=== PATIENT | female | born 1990 | race American Indian/Alaskan Native ===

== ENCOUNTER 2016-07-25 13:53 | Emergency (ER) | payer SELFPAY ==
--- NOTE | 2016-07-25 16:24 | Emergency Department Report ---
HPI - General Chief Complaint: Urogenital-Female Time Seen by Provider: 07/25/16 14:56 - HPI HPI: 26-year-old female presents today with slight vaginal discharge 2 days. Positive for history of similar symptoms with diagnosis of bacterial vaginosis. Patient is currently sexually active and admits to unprotected sex. Denies any pain. Denies fever, chills, nausea, vomiting, chest pain, shortness of breath, abdominal pain, burning on urination, increased urinary frequency or urgency, blood in urine. ED Past Medical Hx - Past Medical History Previous Medical History?: No - Surgical History Past Surgical History?: No - Social History Smoking Status: Never Smoker Substance Use Type: Alcohol - Medications Home Medications: Home Medications Medication Instructions Recorded Confirmed Last Taken Type Fluconazole [Diflucan TAB] 150 mg PO ONCE #2 tablet 07/25/16 Unknown Rx Sulfamethoxazole/Trimethoprim 1 each PO BID #6 tablet 07/25/16 Unknown Rx [Bactrim DS TAB] metroNIDAZOLE [Flagyl] 500 mg PO BID #14 tab 07/25/16 Unknown Rx ED Review of Systems ROS: Stated complaint: VAGINAL SWELLING/WHITE D/C Other details as noted in HPI Constitutional: denies: chills, fever, malaise Eyes: denies: eye pain ENT: denies: ear pain, throat pain, congestion Respiratory: denies: cough, shortness of breath, wheezing Cardiovascular: denies: chest pain, palpitations Endocrine: no symptoms reported Gastrointestinal: denies: abdominal pain, nausea, vomiting Genitourinary: discharge. denies: urgency, dysuria, frequency, hematuria Musculoskeletal: denies: back pain Neurological: denies: headache, weakness, numbness, paresthesias Physical Exam - Physical Exam Vital Signs: Vital Signs 07/25/16 14:15 Temperature 98.3 F Pulse Rate 92 H Respiratory 20 Rate Blood Pressure 144/86 O2 Sat by Pulse 99 Oximetry Physical Exam: GENERAL: The patient is well-developed and well-nourished. Patient is in NAD. HEAD: Normocephalic. Atraumatic. CHEST/LUNGS: Clear to auscultation throughout. HEART/CARDIOVASCULAR: Regular rate and rhythm. No murmurs, rubs or gallops. ABDOMEN: Abdomen is soft, nontender. Bowel sounds normoactive. No guarding or rebound tenderness. Negative for CVA tenderness bilaterally. PELVIC: Normal external genitalia. Normal cervix. Positive for white discharge in vaginal canal. EXTREMITIES: Peripheral pulses intact. Capillary refill less than 2 seconds. NEURO: Alert and oriented x 3. Normal gait. ED Course Vital Signs 07/25/16 14:15 Temperature 98.3 F Pulse Rate 92 H Respiratory 20 Rate Blood Pressure 144/86 O2 Sat by Pulse 99 Oximetry ED Medical Decision Making - Lab Data Vital Signs 07/25/16 14:15 Temperature 98.3 F Pulse Rate 92 H Respiratory 20 Rate Blood Pressure 144/86 O2 Sat by Pulse 99 Oximetry Lab Results 07/25/16 Range/Units 16:07 Urine Color Straw (Yellow) Urine Turbidity Clear (Clear) Urine pH 8.0 H (5.0-7.0) Ur Specific [place] 1.006 (1.003-1.030) Urine Protein <15 mg/dl (Negative) mg/dL Urine Glucose (UA) Neg (Negative) mg/dL Urine Ketones Neg (Negative) mg/dL Urine Blood Neg (Negative) Urine Nitrite Neg (Negative) Urine Bilirubin Neg (Negative) Urine Urobilinogen < 2.0 (<2.0) mg/dL Ur Leukocyte Esterase Lg (Negative) Urine WBC (Auto) 1.0 (0.0-6.0) /HPF Urine RBC (Auto) 1.0 (0.0-6.0) /HPF U Epithel Cells (Auto) 1.0 (0-13.0) /HPF Urine HCG, Qual Negative (Negative) Microbiology 07/25/16 Unknown Wet Prep - Final Vaginal < 20% Clue Cells Few Yeast Many Polymorphonuclear cells - Medical Decision Making 26-year-old female presents today with a white vaginal discharge 2 days. Her urinalysis reveals large leukocyte Estrace. Her wet prep reveals clue cells, yeast and polymorphonuclear cells. Patient has been treated with Diflucan today. She will be sent home on Flagyl and Bactrim. Patient is in no acute distress at this time. She is will be discharged home and is encouraged to follow up with a primary care provider. She is encouraged to return to the emergency room for any worsening symptoms. Critical care attestation.: If time is entered above; I have spent that time in minutes in the direct care of this critically ill patient, excluding procedure time. ED Disposition Clinical Impression: Vaginal yeast infection, Bacterial vaginosis UTI (urinary tract infection) Qualifiers: Urinary tract infection type: acute cystitis Hematuria presence: without hematuria Qualified Code(s): N30.00 - Acute cystitis without hematuria Disposition: DISCHARGED TO HOME OR SELFCARE Is pt being admited?: No Does the pt Need Aspirin: No Condition: Stable Instructions: Bacterial Vaginosis (ED), Vulvovaginal Candidiasis (ED), Urinary Tract Infection in Women (ED) Additional Instructions: Follow-up with primary care provider. Return to the emergency department if symptoms worsen. Prescriptions: Fluconazole [Diflucan TAB] 150 mg PO ONCE #2 tablet metroNIDAZOLE [Flagyl] 500 mg PO BID #14 tab Sulfamethoxazole/Trimethoprim [Bactrim DS TAB] 1 each PO BID #6 tablet Referrals: PRIMARY CARE,MD [Primary Care Provider] - 3-5 Days [facility] [Outside] - 3-5 Days Forms: STI Treatment and Prevention, Work/School Release Form(ED) Time of Disposition: 18:26
[2016-07-25 16:43] LABS: Bilirubin,Urine NEG (Negative); Blood,Urine NEG (Negative); Ketones,Urine NEG (Negative); Leukocyte Esterase,Urine LG (Negative); Nitrite,Urine NEG (Negative); Protein,Urine <15 mg/dL mg/dL (Negative); Urobilinogen,Urine < 2.0 mg/dL (<2.0)
[2016-07-25] MEDS ORDERED: DIFLUCAN PO ONE ×2 (18:22→19:00)
[2016-07-25 18:47] VITALS: BP 104/69
== END 2016-07-25 18:46 | disposition home or self-care (01) ==
LOC: ED 13:53
DX: B37.3 Candidiasis of vulva and vagina (principal); N76.0 Acute vaginitis
CPT/HCPCS: 81001; 81025; 87210; 87591; 99284